=== PATIENT | male | born 1975 | race Caucasian/White ===

== ENCOUNTER 2018-07-25 10:58 | Emergency (ER) | payer MEDICAID, OTHER ==
[~2018-07-25] VITALS: Ht 180.3 cm; Wt 77.0 kg
[2018-07-25 11:17] VITALS: BP 159/96
[2018-07-25] MEDS ORDERED: HYDROcodone/acetaminophen 10/325mg tab PO ONE (12:05)
[2018-07-25] MEDS ORDERED: ketorolac trometh inj. 60 MG/2 ML VIAL IM ONE (12:05)
[2018-07-25] MEDS ORDERED: IBUP-1986 PO (13:27)
[2018-07-25] MEDS ORDERED: HYDR-4353 PO (13:27)
== END 2018-07-25 13:37 | disposition home or self-care (01) ==
LOC: ER 10:59
DX: S20.211A Contusion of right front wall of thorax, initial encounter (principal); G89.29 Other chronic pain; F17.200 Nicotine dependence, unspecified, uncomplicated; F12.90 Cannabis use, unspecified, uncomplicated; W20.8XXA Other cause of strike by thrown, projected or falling object, initial encounter; Y93.89 Activity, other specified; Y92.89 Other specified places as the place of occurrence of the external cause; Y99.8 Other external cause status
CPT/HCPCS: 71045; 71120; 96372; 99284; J1885

== ENCOUNTER 2018-08-19 15:59 | Emergency (ER) | payer MEDICAID, OTHER ==
[~2018-08-19] VITALS: Ht 180.3 cm; Wt 86.0 kg
[~2018-08-19 15:59] MED LIST: HYDR-4353 PO; IBUP-1986 PO
[2018-08-19] MEDS ORDERED: normal saline 1000ML IV soln IV ONE (16:25)
[2018-08-19] MEDS ORDERED: LORazepam 2 mg/ml vial IV ONE (16:25)
[2018-08-19] MEDS ORDERED: methylPREDNISolone sod succ 125mg/2ml vial IV ONE (16:25)
[2018-08-19] MEDS ORDERED: albuterol 2.5 MG/3 ML nebule CONTNEB PRN (16:25)
[2018-08-19] MEDS ORDERED: normal saline 1000ML IV soln IVB ONE (16:25)
[2018-08-19 17:05] LABS: BASOPHILS # (AUTO) 0.1 X10'3 (0-0.2); BASOPHILS % (AUTO) 0.7 % (0-1); EOSINOPHILS # (AUTO) 0.3 X10'3 (0-0.9); EOSINOPHILS % (AUTO) 4.5 % (0-6); HEMATOCRIT 43.2 % (42.0-52.0); HEMOGLOBIN 14.7 g/dl (14.0-17.9); LYMPHOCYTES # (AUTO) 2.6 X10'3 (1.1-4.8); LYMPHOCYTES % (AUTO) 34.7 % (21-51); MEAN CORPUSCULAR HEMOGLOBIN 33.7 PG (27.0-31.0); MEAN CORPUSCULAR VOLUME 99.1 FL (78-98); MEAN PLATELET VOLUME 7.3 FL (7.4-10.4); MONOCYTES # (AUTO) 0.7 X10'3 (0-0.9); MONOCYTES % (AUTO) 9.3 % (2-12); NEUTROPHILS # (AUTO) 3.8 X10'3 (1.8-7.7); NEUTROPHILS % (AUTO) 50.8 % (42-75); PLATELET COUNT 288 X10'3 (140-440); RED BLOOD COUNT 4.36 X10'6 (4.70-6.10); RED CELL DISTRIBUTION WIDTH 13.4 % (11.5-14.5); WHITE BLOOD COUNT 7.5 X10'3 (4.5-11.0)
[2018-08-19 17:18] LABS: ALANINE AMINOTRANSFERASE 63 U/L (12-78); ALBUMIN 3.4 G/DL (3.4-5.0); ALBUMIN/GLOBULIN RATIO 0.9 (1.1-1.5); ALKALINE PHOSPHATASE 84 IU/L (46-116); ANION GAP 12 (8-16); ASPARTATE AMINO TRANSFERASE 57 U/L (10-37); BILIRUBIN,TOTAL 0.1 MG/DL (0.1-1.0); BLOOD UREA NITROGEN 10 MG/DL (7-18); BUN/CREATININE RATIO 15.4 (5.4-32.0); CALCIUM 8.3 MG/DL (8.5-10.1); CHLORIDE 103 MMOL/L (99-107); CREATININE 0.65 MG/DL (0.60-1.10); GLUCOSE 91 MG/DL (70-104); POTASSIUM 3.8 MMOL/L (3.5-5.1); SODIUM 140 MMOL/L (135-145); TOTAL CARBON DIOXIDE 25.1 MMOL/L (24-32); eGFR > 90 ML/MIN
[2018-08-19 17:21] VITALS: BP 149/92
[2018-08-19 17:36] LABS: CLARITY,URINE CLEAR (Clear); COLOR,URINE YELLOW (Yellow); GLUCOSE, URINE NEGATIVE (Neg); KETONES,URINE NEGATIVE (Neg); LEUKOCYTE ESTERASE ,URINE NEGATIVE (Neg); NITRITES, URINE NEGATIVE (Neg); OCCULT BLOOD,URINE SMALL (Neg); PROTEIN,URINE NEGATIVE (Neg); UA COLLECTION TYPE URINAL; UROBILINOGEN,URINE 0.2 E.U/dL (0.2-1.0)
[2018-08-19 17:46] LABS: BACTERIA,URINE FEW /HPF (Neg); CELLULAR CAST 0-4 /LPF (NEGATIVE); HYALINE CASTS 0-3 /LPF (NEGATIVE); MUCUS STRANDS FEW /LPF (Neg); RBC,URINE 0-2 /HPF (0-2); SQUAMOUS EPITHELIAL CELL,UR FEW /LPF (FEW); WBC,URINE 0-4 /HPF (0-4)
[2018-08-19 17:48] LABS: URINE AMPHETAMINE SCREEN NEGATIVE (Neg); URINE BARBITUATE SCREEN NEGATIVE (Neg); URINE BENZODIAZEPINES SCREEN NEGATIVE (Neg); URINE CANNABINOID SCREEN POSITIVE (Neg); URINE COCAINE SCREEN NEGATIVE (Neg); URINE METHADONE SCREEN NEGATIVE (Neg); URINE OPIATE SCREEN POSITIVE (Neg); URINE PHENCYCLIDINE SCREEN NEGATIVE (Neg)
[2018-08-19] MEDS ORDERED: GUAI120015 PO (17:49)
[2018-08-19] MEDS ORDERED: PRED20TA PO (17:49)
[2018-08-19] MEDS ORDERED: AMOX-419 PO (17:49)
[2018-08-19] MEDS ORDERED: ALBU6.7H INH (17:49)
[2018-08-19 18:02] LABS: ETHANOL 0.379 GM/DL (0.0-0.010)
== END 2018-08-19 18:47 | disposition home or self-care (01) ==
LOC: ER 15:59
DX: J40 Bronchitis, not specified as acute or chronic (principal); F41.9 Anxiety disorder, unspecified; F17.200 Nicotine dependence, unspecified, uncomplicated; F12.90 Cannabis use, unspecified, uncomplicated; G89.29 Other chronic pain; F32.9 Major depressive disorder, single episode, unspecified; Z79.899 Other long term (current) drug therapy
CPT/HCPCS: 36415; 71045; 80053; 80305; 80320; 81001; 83605; 84484; 85025; 87040; 87502; 87503; 93005; 94640; 94760; 96374; 96375; 99284; J2060; J2930; J7030; 94644; 99285

== ENCOUNTER 2018-09-14 11:52 | Emergency (ER) | payer MEDICAID, OTHER ==
[~2018-09-14] VITALS: Ht 180.3 cm; Wt 83.0 kg
[~2018-09-14 11:52] MED LIST changes: +ALBU6.7H INH; +GUAI120015 PO; -HYDR-4353 PO
[2018-09-14] MEDS ORDERED: normal saline 1000ML IV soln IVB ONE (13:40)
[2018-09-14] MEDS ORDERED: LORazepam 2 mg/ml vial IV ONE (13:40)
[2018-09-14] MEDS ORDERED: Potassium Cl inj 20 MEQ, magnesium sulf injection 2 GM, folic acid inj. 1 MG, thiamine ... IV ONE ×6 (13:54)
[2018-09-14] MEDS ORDERED: [UNRECOGNIZED DRUG - REMARK] IV ONE ×4 (14:00)
[2018-09-14 14:09] LABS: BASOPHILS # (AUTO) 0.1 X10'3 (0-0.2); EOSINOPHILS # (AUTO) 0.2 X10'3 (0-0.9); EOSINOPHILS % (AUTO) 3.5 % (0-6); HEMOGLOBIN 14.7 g/dl (14.0-17.9); LYMPHOCYTES % (AUTO) 30.4 % (21-51); MEAN CORPUSCULAR HEMOGLOBIN 33.5 PG (27.0-31.0); MEAN CORPUSCULAR HGB CONC 32.6 % (33.0-36.5); MEAN CORPUSCULAR VOLUME 102.7 FL (78-98); MEAN PLATELET VOLUME 7.9 FL (7.4-10.4); MONOCYTES # (AUTO) 0.6 X10'3 (0-0.9); MONOCYTES % (AUTO) 9.4 % (2-12); NEUTROPHILS # (AUTO) 3.5 X10'3 (1.8-7.7); NEUTROPHILS % (AUTO) 55.7 % (42-75); PLATELET COUNT 441 X10'3 (140-440); RED BLOOD COUNT 4.38 X10'6 (4.70-6.10); WHITE BLOOD COUNT 6.4 X10'3 (4.5-11.0)
[2018-09-14 14:19] LABS: URINE AMPHETAMINE SCREEN NEGATIVE (Neg); URINE BARBITUATE SCREEN NEGATIVE (Neg); URINE BENZODIAZEPINES SCREEN NEGATIVE (Neg); URINE CANNABINOID SCREEN POSITIVE (Neg); URINE COCAINE SCREEN NEGATIVE (Neg); URINE METHADONE SCREEN NEGATIVE (Neg); URINE OPIATE SCREEN POSITIVE (Neg); URINE PHENCYCLIDINE SCREEN NEGATIVE (Neg)
[2018-09-14 14:22] LABS: ALANINE AMINOTRANSFERASE 67 U/L (12-78); ALBUMIN 3.6 G/DL (3.4-5.0); ALBUMIN/GLOBULIN RATIO 0.9 (1.1-1.5); ALKALINE PHOSPHATASE 86 IU/L (46-116); ANION GAP 14 (8-16); ASPARTATE AMINO TRANSFERASE 56 U/L (10-37); BILIRUBIN,TOTAL 0.4 MG/DL (0.1-1.0); BLOOD UREA NITROGEN 4 MG/DL (7-18); BUN/CREATININE RATIO 5.9 (5.4-32.0); CALCIUM 8.5 MG/DL (8.5-10.1); CHLORIDE 98 MMOL/L (99-107); CREATININE 0.68 MG/DL (0.60-1.10); ETHANOL 0.016 GM/DL (0.0-0.010); GLUCOSE 87 MG/DL (70-104); LIPASE 136 U/L (73-393); MAGNESIUM 1.5 MG/DL (1.5-2.4); POTASSIUM 3.6 MMOL/L (3.5-5.1); SODIUM 137 MMOL/L (135-145); TOTAL CARBON DIOXIDE 24.7 MMOL/L (24-32); TOTAL PROTEIN 7.6 G/DL (6.4-8.2); eGFR > 90 ML/MIN
[2018-09-14] MEDS ORDERED: magnesium 2GM in 50ml NS 50 ML IV ONE (14:30)
[2018-09-14] MEDS ORDERED: potassium CL 20mEq in D5-1/2NS 1,000 ML IV ONE (14:30)
[2018-09-14] MEDS ORDERED: DEXTROSE 5% IV ONE (14:35)
[2018-09-14] MEDS ORDERED: WATER IV ONE (14:35)
[2018-09-14] MEDS ORDERED: THIAMINE IV ONE (14:35)
[2018-09-14] MEDS ORDERED: FOLIC ACID IV ONE (14:35)
[2018-09-14] MEDS ORDERED: multivitamins, therapeutics tablet PO ONE (14:40)
[2018-09-14] MEDS ORDERED: THIA100T66 PO (14:49)
[2018-09-14] MEDS ORDERED: MULT-933 PO (14:49)
[2018-09-14] MEDS ORDERED: FOLI0.4T2 PO (14:49)
[2018-09-14] MEDS ORDERED: VALS80TA2 PO (14:57)
[2018-09-14 15:03] LABS: CREATINE KINASE 353 U/L (39-308)
[2018-09-14 19:53] VITALS: BP 186/122
--- NOTE | 2018-09-15 09:07 | NUR ---
PT WAS SEEN IN ER 09/14/18, LEFT PERSONAL BETHEA BEHIND AT DISCHARGE. ATTEMPTED TO CALL PT REGARDING HIS BETHEA AND WAS UNABLE TO LEAVE A MESSAGE
== END 2018-09-14 14:30 | disposition home or self-care (01) ==
LOC: ER 11:52
DX: F10.10 Alcohol abuse, uncomplicated (principal); M79.604 Pain in right leg; M79.605 Pain in left leg; R53.1 Weakness; I10 Essential (primary) hypertension; R10.13 Epigastric pain; G89.29 Other chronic pain; F17.200 Nicotine dependence, unspecified, uncomplicated; F12.90 Cannabis use, unspecified, uncomplicated; Z79.899 Other long term (current) drug therapy; Y90.9 Presence of alcohol in blood, level not specified
CPT/HCPCS: 36415; 80053; 80305; 80320; 82550; 83690; 83735; 85025; 96374; 99283; J2060; J3411; J3475; J3490; J7030; J7060

== ENCOUNTER 2020-06-12 20:30 | Emergency (ER) | payer SELFPAY ==
[~2020-06-12 20:30] MED LIST changes: -ALBU6.7H INH; +ALBU6.7H9 INH; +MULT-933 PO; +THIA100T66 PO
== END 2020-06-12 20:43 | disposition left against medical advice (07) ==
LOC: ER 20:31
DX: S61.219A Laceration without foreign body of unspecified finger without damage to nail, initial encounter (principal); Z53.21 Procedure and treatment not carried out due to patient leaving prior to being seen by health care provider; X58.XXXA Exposure to other specified factors, initial encounter; Y93.89 Activity, other specified; Y92.89 Other specified places as the place of occurrence of the external cause; Y99.8 Other external cause status

== ENCOUNTER 2020-12-19 19:31 | Emergency (ER) | payer MEDICAID ==
[~2020-12-19] VITALS: Ht 180.3 cm; Wt 81.8 kg
[2020-12-19 19:35] VITALS: BP 166/107
[2020-12-19] MEDS ORDERED: HYDR-3965 PO (21:39)
== END 2020-12-19 22:18 | disposition home or self-care (01) ==
LOC: ER 19:32
DX: S82.891A Other fracture of right lower leg, initial encounter for closed fracture (principal); M25.571 Pain in right ankle and joints of right foot; I10 Essential (primary) hypertension; G89.29 Other chronic pain; F41.9 Anxiety disorder, unspecified; F32.9 Major depressive disorder, single episode, unspecified; F12.90 Cannabis use, unspecified, uncomplicated; Z72.89 Other problems related to lifestyle; Z79.899 Other long term (current) drug therapy; W50.2XXA Accidental twist by another person, initial encounter; Y93.01 Activity, walking, marching and hiking; Y92.89 Other specified places as the place of occurrence of the external cause; Y99.8 Other external cause status
CPT/HCPCS: 29515; 73564; 73610; 99284